=== PATIENT | female | born 1985 | race African-American/Black ===

== ENCOUNTER 2019-03-20 18:52 | Emergency (ER) | payer SELFPAY ==
[~2019-03-20] VITALS: Ht 149.9 cm; Wt 70.5 kg
[~2019-03-20 18:52] MED LIST: NO HOME MEDICATIONS
[2019-03-20 18:56] VITALS: BP 131/66; TEMP 98.6
[2019-03-20 19:09] LABS: STREP SCREEN NEGATIVE
[2019-03-20 20:48] VITALS: PULSE 85
== END 2019-03-20 20:47 | disposition home or self-care (01) ==
LOC: COL.ER 18:52
PROVIDERS: Nurse Practitioner
DX: J02.9 Acute pharyngitis, unspecified (principal); F17.210 Nicotine dependence, cigarettes, uncomplicated
CPT/HCPCS: J0561